=== PATIENT | female | born 1955 | race Two or more races ===

== ENCOUNTER 2016-07-03 14:02 | Emergency (ER) | payer OTHER ==
[2016-07-03] MEDS ORDERED: TDAP ADULT 0.5 ML INJ (BOOSTRIX) IM ONE (14:14)
[2016-07-03 14:16] VITALS: RESP 18
--- NOTE | 2016-07-03 14:58 | EDPHY ---
H & P Time Seen by Provider: 07/03/16 14:08 HPI/ROS: CHIEF COMPLAINT: Lip lacerations HISTORY OF PRESENT ILLNESS: 60-year-old female presents to the emergency department by private vehicle after having a mechanical fall and sustaining an upper and lower lip laceration. The incident happened a few hours prior to arrival. She did not lose consciousness. She did not sustain any dental injury. She wears dentures on the top and the bottom. Denies jaw pain. Denies facial pain. Denies headache. No loss of consciousness. No chest pain or difficulty breathing. No presyncopal symptoms prior to her fall. She sustained abrasions to both knees. She is able to walk. Denies injury to the upper extremities. She is unsure of her last tetanus shot. REVIEW OF SYSTEMS: Constitutional: No fever, no chills. Eyes: No double or blurry vision. ENT: No sore throat. Respiratory: No cough, no shortness of breath. Cardiac: No chest pain. Gastrointestinal: No abdominal pain, vomiting or diarrhea. Genitourinary: No dysuria. Musculoskeletal: No neck or back pain. Skin: Lip laceration upper and lower lip. No rashes. Neurological: No headache. Past Medical/Surgical History: Diabetes, hypertension Social History: and lives in [place] Smoking Status: Current every day smoker Physical Exam: General Appearance: Alert, no distress. Mentating normally and answering questions appropriately. Eyes: Pupils equal and round. Extraocular motions are all intact. ENT: Mouth: Mucous membranes moist. Dentures on top and bottom. Nontender to palpate along the mandible. Respiratory: No wheezing, rhonchi, or rales, lungs are clear to auscultation. Cardiovascular: Regular rate and rhythm. Gastrointestinal: Abdomen is soft and nontender, no masses, no rebound or guarding, bowel sounds normal. Neurological: Alert and oriented x 3, cranial nerves II through XII grossly intact Skin: Less than 1 cm upper lip laceration that is in the midline that crosses the vermilion border. It is not through and through laceration. There is a 3 cm midline lower lip laceration that does not extend across the vermilion border. It is gaping. Warm and dry, no rashes. Musculoskeletal: Nontender to palpate along the cervical, thoracic or lumbar spine. Neck is supple. Extremities: Full range of motion and no peripheral edema. Superficial abrasions noted to the anterior knees. Full range of motion of the upper lower extremities. Normal gait. Psychiatric: Patient is oriented X 3, there is no agitation. Constitutional: Initial Vital Signs Temperature (C) 36.5 C 07/03/16 14:14 Heart Rate 93 07/03/16 14:14 Respiratory Rate 18 07/03/16 14:14 Blood Pressure 155/91 H 07/03/16 14:14 O2 Sat (%) 93 07/03/16 14:14 O2 Delivery Mode Room Air Allergies/Adverse Reactions: No Known Allergies Allergy (Unverified 07/03/16 14:14) Medical Decision Making Procedures: Laceration repair #1. Verbal consent was obtained from the patient. The 1 cm laceration on the center upper lip was anesthetized using 1% lidocaine with epinephrine. The wound was irrigated with saline, draped and explored to its base with a gloved finger. There were no deep structures involved. Crosses the vermilion border. The wound was repaired with 6 0 Prolene, 4 sutures. The wound repair was simple. The procedure was performed by myself. Laceration repair #2. Verbal consent was obtained from the patient. The 3 cm gaping laceration on the center lower lip was anesthetized using 1% lidocaine with epinephrine. The wound was irrigated with saline, draped and explored to its base with a gloved finger. There were no deep structures involved. The wound was repaired with 6 0 Vicryl, 3 sutures and 6 0 Prolene, 11 sutures. The wound repair was complex. The procedure was performed by myself. ED Course/Re-evaluation: 60-year-old female presents after mechanical fall sustaining upper and lower lip lacerations. See procedure note. Patient was given wound care precautions. She will return for suture removal in 5-7 days. She was instructed to return sooner if she developed any signs or symptoms of infection or any other concerns. Differential Diagnosis: Including but not limited to facial fractures, dental injury, laceration, head injury - Data Points Medications Given: Discontinued Medications Diphtheria/Tetanus/Acell Pertussis (Boostrix) 0.5 ml IM .ONCE ONE Stop: 07/03/16 14:15 Last Admin: 07/03/16 14:37 Dose: 0.5 ml Departure - Departure Disposition: Home, Routine, Self-Care Clinical Impression: Laceration of lower lip with complication Laceration of vermilion border of upper lip Qualifiers: Encounter type: initial encounter Qualified Code(s): S01.511A - Laceration without foreign body of lip, initial encounter Condition: Good Instructions: Care For Your Stitches (ED), Laceration (ED), Acute Wounds (ED) Additional Instructions: Wound Care Follow-Up: Removal of sutures in 7 days. Suture removal is complimentary in uncomplicated cases. Infection or abnormal findings would require reevaluation by the MD. In that case, you may be billed. Return if you notice any signs or symptoms of infection such as redness, swelling, increased pain, fever, purulent drainage. Ibuprofen 600 mg every 8 hours as needed for pain. Antibiotic ointment to wounds daily. Referrals: LEXI DONALD [Other] - As per Instructions
[2016-07-03 15:47] VITALS: BP 143/74; PULSE 84; TEMP 98.4; O2SAT 95
== END 2016-07-03 15:44 | disposition home or self-care (01) ==
PROC: 0CQ0XZZ Repair Upper Lip, External Approach (ICD-10-PCS; principal; 2016-07-03)
PROC: 0CQ1XZZ Repair Lower Lip, External Approach (ICD-10-PCS; principal; 2016-07-03)
DX: S01.511A Laceration without foreign body of lip, initial encounter (principal); F17.200 Nicotine dependence, unspecified, uncomplicated; E11.9 Type 2 diabetes mellitus without complications; I10 Essential (primary) hypertension; Z23 Encounter for immunization; W18.39XA Other fall on same level, initial encounter